=== PATIENT | male | born 1955 | race Caucasian/White ===

== ENCOUNTER 2016-11-06 10:09 | Outpatient (RCR) | payer MEDICARE, OTHER ==
--- OUTSIDE RECORDS SUMMARY | 2016-09-04 08:47 | XMS REPORT | Continuity of Care Document ---
Author Author [facility] Organization [facility] Address Unknown Phone Unavailable Care Team Providers Care [employer] Name Role Phone Nehal DONAHUE DO PCP Insurance Providers Payer Name Policy Number Subscriber Name Relationship [employer] Medicare [id number] Darryn Osorio 18 Self / Same As Patient Enter Insurance Name [id number] Darryn Osorio 18 Self / Same As Patient Problems No known problems or medical conditions. Medications No known medications. Social History Social History Problem Response Recorded Date/Time Recent Foreign Travel N see [email or web address] 09/20/2014 10:09am Hospital Discharge Instructions No hospital discharge instructions. Plan of Care No plan of care. Functional Status No functional status results. Allergies, Adverse Reactions, Alerts No known allergies. Immunizations No immunization records. Vital Signs No known vital signs results. Results Laboratory Results Test Name Result Units Flags Reference Collection Date/Time Result Date/ Time Comments White Blood Count 15.8 10^3/uL H 4.3-11.0 10/24/2014 10:30am 10/24/2014 10:38am Red Blood Count 6.19 10^6/uL H 4.35-5.85 10/24/2014 10:30am 10/24/2014 10 :38am Hemoglobin 16.1 G/DL 13.3-17.7 10/24/2014 10:30am 10/24/2014 10:38am Hematocrit 49 % 40-54 10/24/2014 10:30am 10/24/2014 10:38am Mean Corpuscular Volume 80 FL 80-99 10/24/2014 10:30am 10/24/2014 10: 38am Mean Corpuscular Hemoglobin 26 PG 25-34 10/24/2014 10:30am 10/24/2014 10:38am Mean Corpuscular Hemoglobin Concent 33 G/DL 32-36 10/24/2014 10:30am 10:38am Red Cell Distribution Width 18.5 % H 10.0-14.5 10/24/2014 10:30am 2013 10:38am Platelet Count 278 10^3/uL 130-400 10/24/2014 10:30am 10/24/2014 10: 38am Mean Platelet Volume 9.5 FL 7.4-10.4 10/24/2014 10:30am 10/24/2014 10: 38am Neutrophils (%) (Auto) 84 % H 42-75 10/24/2014 10:30am 10/24/2014 10: 38am Lymphocytes (%) (Auto) 11 % L 12-44 10/24/2014 10:30am 10/24/2014 10: 38am Monocytes (%) (Auto) 4 % 0-12 10/24/2014 10:30am 10/24/2014 10:38am Eosinophils (%) (Auto) 0 % 0-10 10/24/2014 10:30am 10/24/2014 10:38am Basophils (%) (Auto) 0 % 0-10 10/24/2014 10:30am 10/24/2014 10:38am Neutrophils # (Auto) 13.3 X 10^3 H 1.8-7.8 10/24/2014 10:30am 10/24/2014 10:38am Lymphocytes # (Auto) 1.7 X 10^3 1.0-4.0 10/24/2014 10:30am 10/24/2014 10:38am Monocytes # (Auto) 0.7 X 10^3 0.0-1.0 10/24/2014 10:30am 10/24/2014 10: 38am Eosinophils # (Auto) 0.0 10^3/uL 0.0-0.3 10/24/2014 10:30am 10/24/2014 10:38am Basophils # (Auto) 0.0 10^3/uL 0.0-0.1 10/24/2014 10:30am 10/24/2014 10 :38am Urine Color YELLOW 11/01/2014 9:50am 11/01/2014 10:21am Urine Clarity SLIGHTLY CLOUDY 11/01/2014 9:50am 11/01/2014 10:21am Urine pH 7 5-9 11/01/2014 9:50am 11/01/2014 10:21am Urine Specific Normal 1.015 * 1.016-1.022 11/01/2014 9:50am 2013 10:21am Urine Protein 2+ * NEGATIVE 11/01/2014 9:50am 11/01/2014 10:21am Urine Glucose (UA) NEGATIVE NEGATIVE 11/01/2014 9:50am 11/01/2014 10: 21am Urine RBC (Auto) 2+ * NEGATIVE 11/01/2014 9:50am 11/01/2014 10:21am Urine Ketones NEGATIVE NEGATIVE 11/01/2014 9:50am 11/01/2014 10:21am Urine Nitrite NEGATIVE NEGATIVE 11/01/2014 9:50am 11/01/2014 10:21am Urine Bilirubin NEGATIVE NEGATIVE 11/01/2014 9:50am 11/01/2014 10: 21am Urine Urobilinogen NORMAL MG/DL NORMAL 11/01/2014 9:50am 11/01/2014 10: 21am Urine Leukocyte Esterase 2+ * NEGATIVE 11/01/2014 9:50am 11/01/2014 10: 21am Urine RBC 2-5 /HPF * 11/01/2014 9:50am 11/01/2014 10:21am Urine WBC 25-50 /HPF * 11/01/2014 9:50am 11/01/2014 10:21am Urine Bacteria TRACE /HPF 11/01/2014 9:50am 11/01/2014 10:21am Urine Squamous Epithelial Cells NONE /HPF 11/01/2014 9:50am 2013 10:21am Urine Crystals NONE /LPF 11/01/2014 9:50am 11/01/2014 10:21am Urine Casts NONE /LPF 11/01/2014 9:50am 11/01/2014 10:21am Urine Mucus SMALL /LPF * 11/01/2014 9:50am 11/01/2014 10:21am Urine Culture Indicated YES 11/01/2014 9:50am 11/01/2014 10:21am Sodium Level 138 MMOL/L 135-145 10/24/2014 10:30am 10/24/2014 11:18am Potassium Level 3.9 MMOL/L 3.6-5.0 10/24/2014 10:30am 10/24/2014 11: 18am Chloride Level 101 MMOL/L 98-107 10/24/2014 10:30am 10/24/2014 11:18am Carbon Dioxide Level 28 MMOL/L 21-32 10/24/2014 10:30am 10/24/2014 11: 18am Blood Urea Nitrogen 18 MG/DL 7-18 10/24/2014 10:30am 10/24/2014 11: 18am Creatinine 0.89 MG/DL 0.60-1.30 10/24/2014 10:30am 10/24/2014 11:18am BUN/Creatinine Ratio 20 10/24/2014 10:30am 10/24/2014 11:18am Estimat Glomerular Filtration Rate > 60 10/24/2014 10:30am 2013 11:18am GFR INTERPRETIVE DATA UNITS FOR ESTIMATED GFR (eGFR): mL/min/1.73 M2 REFERENCE RANGE FOR ESTIMATED GFR (eGFR) eGFR NORMAL eGFR >60 MODERATELY DECREASED eGFR 30-59 SEVERLY DECREASED eGFR 15-29 KIDNEY FAILURE <15 (OR DIALYSIS) Glucose Level 134 MG/DL H 70-105 10/24/2014 10:30am 10/24/2014 11:18am Calcium Level 9.0 MG/DL 8.5-10.1 10/24/2014 10:30am 10/24/2014 11:18am Total Bilirubin 0.6 MG/DL 0.1-1.0 10/24/2014 10:30am 10/24/2014 11: 18am Alkaline Phosphatase 44 U/L 40-136 10/24/2014 10:30am 10/24/2014 11: 18am Aspartate Amino Transf (AST/SGOT) 21 U/L 5-34 10/24/2014 10:30am 2013 11:18am Alanine Aminotransferase (ALT/SGPT) 54 U/L 0-55 10/24/2014 10:30am 11:18am Total Protein 6.3 G/DL L 6.4-8.2 10/24/2014 10:30am 10/24/2014 11:18am Albumin 3.8 G/DL 3.2-4.5 10/24/2014 10:30am 10/24/2014 11:18am Ferritin 12 NG/ML 25-300 10/24/2014 10:30am 10/25/2014 9:14am Iron Level 53 UG/DL 40-180 10/24/2014 10:30am 10/25/2014 9:14am Transferrin % Saturation 11 % 15-50 10/24/2014 10:30am 10/25/2014 9: 14am Total Iron Binding Capacity 465 UG/DL 280-380 10/24/2014 10:30am 2013 9:14am Microbiology Results Procedure Source Result Collection Date/Time Result Date/Time Urine Culture Urine, Clean Catch GRAM NEGATIVE LIBBY 09/20/2014 10:27am 09/22 9:10am ESCHERICHIA COLI 09/20/2014 10:27am 09/22/2014 9:10am KLEBSIELLA OXYTOCA 09/20/2014 10:27am 09/22/2014 9:10am Urine Culture Urine, Nephrostomy PROBABLE ENTEROCOCCUS SPECIES 11/01/2014 9: 50am 11/03/2014 8:03am STAPHYLOCOCCUS AUREUS 11/01/2014 9:50am 11/03/2014 8:03am PROBABLE ENTEROCOCCUS SPECIES 11/01/2014 9:50am 11/03/2014 8:03am STAPHYLOCOCCUS AUREUS 11/01/2014 9:50am 11/03/2014 8:03am PROBABLE ENTEROCOCCUS SPECIES 11/01/2014 9:50am 11/03/2014 8:03am STAPHYLOCOCCUS AUREUS 11/01/2014 9:50am 11/03/2014 8:03am ENTEROCOCCUS FAECALIS 11/01/2014 9:50am 11/03/2014 8:03am STAPHYLOCOCCUS AUREUS 11/01/2014 9:50am 11/03/2014 8:03am Procedures No known history of procedures. Encounters Encounter Location Date/Time Discharged Recurring [facility] 11/01/14 8:38am
[2016-09-04 09:31] LABS: BASOPHILS % (AUTO) 0 % (0-10); EOSINOPHILS # (AUTO) 0.2 10^3/uL (0.0-0.3); EOSINOPHILS % (AUTO) 1 % (0-10); LYMPHOCYTES # (AUTO) 1.8 X 10^3 (1.0-4.0); LYMPHOCYTES % (AUTO) 15 % (12-44); MEAN CORPUSCULAR HEMOGLOBIN 25 PG (25-34); MEAN CORPUSCULAR HGB CONC 32 G/DL (32-36); MEAN CORPUSCULAR VOLUME 79 FL (80-99); MEAN PLATELET VOLUME 9.9 FL (7.4-10.4); MONOCYTES # (AUTO) 0.7 X 10^3 (0.0-1.0); MONOCYTES % (AUTO) 6 % (0-12); NEUTROPHILS # (AUTO) 9.6 X 10^3 (1.8-7.8); NEUTROPHILS % (AUTO) 78 % (42-75); PLATELET COUNT 299 10^3/uL (130-400); RED BLOOD COUNT 6.23 10^6/uL (4.35-5.85); RED CELL DISTRIBUTION WIDTH 19.9 % (10.0-14.5); WHITE BLOOD COUNT 12.2 10^3/uL (4.3-11.0)
[2016-09-04 09:57] LABS: ALANINE AMINOTRANSFERASE 54 U/L (0-55); ALBUMIN 3.9 G/DL (3.2-4.5); ANION GAP 12 MMOL/L (5-14); ASPARTATE AMINO TRANSFERASE 24 U/L (5-34); BILIRUBIN,TOTAL 0.4 MG/DL (0.1-1.0); BLOOD UREA NITROGEN 17 MG/DL (7-18); BUN/CREATININE RATIO 19; CALCIUM 9.3 MG/DL (8.5-10.1); CARBON DIOXIDE 20 MMOL/L (21-32); CHLORIDE 109 MMOL/L (98-107); CREATININE SERUM 0.89 MG/DL (0.60-1.30); GFR ESTIMATED > 60; GLUCOSE 131 MG/DL (70-105); SODIUM 141 MMOL/L (135-145); TOTAL PROTEIN 6.4 G/DL (6.4-8.2)
[2016-09-04 11:50] LABS: %SAT TOTAL IRON BINDING CAPIC 10 % (15-50); TIBC 421 ug/dL (280-380)
[2016-09-04 16:00] LABS: UIBC 381 ug/dL (55-450)
[2016-09-05 07:48] LABS: FERRITIN 19 ng/mL (25-300)
[2016-11-06 10:25] LABS: BASOPHILS % (AUTO) 0 % (0-10); EOSINOPHILS # (AUTO) 0.1 10^3/uL (0.0-0.3); EOSINOPHILS % (AUTO) 1 % (0-10); LYMPHOCYTES # (AUTO) 1.5 X 10^3 (1.0-4.0); LYMPHOCYTES % (AUTO) 13 % (12-44); MEAN CORPUSCULAR HEMOGLOBIN 25 PG (25-34); MEAN CORPUSCULAR HGB CONC 32 G/DL (32-36); MEAN CORPUSCULAR VOLUME 77 FL (80-99); MEAN PLATELET VOLUME 9.7 FL (7.4-10.4); MONOCYTES # (AUTO) 0.5 X 10^3 (0.0-1.0); MONOCYTES % (AUTO) 5 % (0-12); NEUTROPHILS % (AUTO) 81 % (42-75); PLATELET COUNT 296 10^3/uL (130-400); RED BLOOD COUNT 6.33 10^6/uL (4.35-5.85); RED CELL DISTRIBUTION WIDTH 19.6 % (10.0-14.5); WHITE BLOOD COUNT 11.1 10^3/uL (4.3-11.0)
[2016-11-06 10:47] LABS: ALANINE AMINOTRANSFERASE 44 U/L (0-55); ANION GAP 10 MMOL/L (5-14); ASPARTATE AMINO TRANSFERASE 23 U/L (5-34); BILIRUBIN,TOTAL 0.4 MG/DL (0.1-1.0); BLOOD UREA NITROGEN 17 MG/DL (7-18); BUN/CREATININE RATIO 16; CALCIUM 9.3 MG/DL (8.5-10.1); CARBON DIOXIDE 27 MMOL/L (21-32); CHLORIDE 102 MMOL/L (98-107); CREATININE SERUM 1.06 MG/DL (0.60-1.30); GFR ESTIMATED > 60; GLUCOSE 153 MG/DL (70-105); POTASSIUM 4.4 MMOL/L (3.6-5.0); SODIUM 139 MMOL/L (135-145); TOTAL PROTEIN 6.6 G/DL (6.4-8.2)
[2016-11-06 13:29] LABS: %SAT TOTAL IRON BINDING CAPIC 9 % (15-50); TIBC 441 ug/dL (280-380)
[2016-11-06 16:32] LABS: UIBC 403 ug/dL (55-450)
[2016-11-07 08:04] LABS: FERRITIN 20 ng/mL (25-300)
== END 2016-12-03 | disposition home or self-care (01) ==
LOC: ONC 10:09
PROVIDERS: ATTEND Internal Medicine Hematology & Oncology
DX: Z08 Encounter for follow-up examination after completed treatment for malignant neoplasm (principal); Z85.51 Personal history of malignant neoplasm of bladder; D75.1 Secondary polycythemia; J44.9 Chronic obstructive pulmonary disease, unspecified; G47.30 Sleep apnea, unspecified; E66.9 Obesity, unspecified; F17.200 Nicotine dependence, unspecified, uncomplicated; Z87.440 Personal history of urinary (tract) infections; Z79.899 Other long term (current) drug therapy
CPT/HCPCS: 36415; 80053; 82728; 83540; 85025; 99195; 99213

== ENCOUNTER 2017-02-26 10:39 | Outpatient (RCR) | payer MEDICARE, OTHER ==
[2017-02-26 10:55] LABS: BASOPHILS % (AUTO) 0 % (0-10); EOSINOPHILS # (AUTO) 0.1 10^3/uL (0.0-0.3); EOSINOPHILS % (AUTO) 1 % (0-10); LYMPHOCYTES # (AUTO) 2.1 X 10^3 (1.0-4.0); LYMPHOCYTES % (AUTO) 15 % (12-44); MEAN CORPUSCULAR HEMOGLOBIN 25 PG (25-34); MEAN CORPUSCULAR HGB CONC 33 G/DL (32-36); MEAN CORPUSCULAR VOLUME 78 FL (80-99); MEAN PLATELET VOLUME 10.1 FL (7.4-10.4); MONOCYTES # (AUTO) 0.6 X 10^3 (0.0-1.0); MONOCYTES % (AUTO) 4 % (0-12); NEUTROPHILS # (AUTO) 11.5 X 10^3 (1.8-7.8); NEUTROPHILS % (AUTO) 80 % (42-75); PLATELET COUNT 290 10^3/uL (130-400); RED BLOOD COUNT 6.42 10^6/uL (4.35-5.85); RED CELL DISTRIBUTION WIDTH 21.3 % (10.0-14.5); WHITE BLOOD COUNT 14.3 10^3/uL (4.3-11.0)
[2017-02-26 11:33] LABS: ALANINE AMINOTRANSFERASE 43 U/L (0-55); ALBUMIN 3.7 G/DL (3.2-4.5); ANION GAP 7 MMOL/L (5-14); ASPARTATE AMINO TRANSFERASE 19 U/L (5-34); BILIRUBIN,TOTAL 0.5 MG/DL (0.1-1.0); BLOOD UREA NITROGEN 18 MG/DL (7-18); BUN/CREATININE RATIO 18; CALCIUM 8.9 MG/DL (8.5-10.1); CARBON DIOXIDE 32 MMOL/L (21-32); CHLORIDE 101 MMOL/L (98-107); CREATININE SERUM 1.01 MG/DL (0.60-1.30); GFR ESTIMATED > 60; GLUCOSE 144 MG/DL (70-105); POTASSIUM 4.3 MMOL/L (3.6-5.0); SODIUM 140 MMOL/L (135-145); TOTAL PROTEIN 6.3 G/DL (6.4-8.2)
== END 2017-05-27 | disposition home or self-care (01) ==
LOC: ONC 10:39
PROVIDERS: ATTEND Internal Medicine Hematology & Oncology
DX: Z08 Encounter for follow-up examination after completed treatment for malignant neoplasm (principal); Z85.51 Personal history of malignant neoplasm of bladder; D75.1 Secondary polycythemia; J44.9 Chronic obstructive pulmonary disease, unspecified; G47.30 Sleep apnea, unspecified; E66.9 Obesity, unspecified; F17.200 Nicotine dependence, unspecified, uncomplicated; Z87.440 Personal history of urinary (tract) infections; Z79.899 Other long term (current) drug therapy
CPT/HCPCS: 36415; 80053; 82728; 83540; 85025; 99213